=== PATIENT | male | born 1965 | race Caucasian/White ===

== ENCOUNTER → 2023-09-26 15:53 | Outpatient (REF) | payer BC, SELFPAY | LOC: RAD 15:53 | PROVIDERS: ATTENDING PHYSICIAN Specialist; FAMILY PHYSICIAN Family Medicine | DX: R10.31 Right lower quadrant pain (principal); R39.9 Unspecified symptoms and signs involving the genitourinary system; N50.82 Scrotal pain; R10.32 Left lower quadrant pain | CPT/HCPCS: 76857; 76870; 76882; 93976 ==